=== PATIENT | female | born 1995 | race Caucasian/White ===

== ENCOUNTER → 2019-04-06 04:38 | Observation (INO) ==
[2019-04-06 00:01] LABS: Bilirubin,Urine Negative (Negative); Blood,Urine Large (Negative); Clarity,Urine Cloudy (Clear); Color,Urine Yellow (Yellow); Glucose,Urine (UA) Normal (Normal); Ketones,Urine Negative (Negative); Leukocyte Esterase,Urine Trace (Negative); Nitrite,Urine Negative (Negative); Protein,Urine Trace mg/dL (Neg-Trace); Specific Gravity,Urine 1.026 (1.010-1.025); Urobilinogen,Urine Normal (Normal)
[2019-04-06 00:04] LABS: Hyaline Casts,Urine None Seen per lpf (None-Few)
[2019-04-06 00:08] LABS: Amphetamine Screen,Urine Negative ng/mL (Cutoff=1000); Barbiturate Screen,Urine Negative ng/mL (Cutoff=200); Benzodiazepines Screen,Urine Negative ng/mL (Cutoff=200); Cannabinoid Screen,Urine Negative ng/mL (Cutoff = 50); Cocaine Screen,Urine Negative ng/mL (Cutoff= 300); Opiate Screen,Urine Negative ng/mL (Cutoff=300); Phencyclidine Screen,Urine Negative ng/mL (Cutoff=25)
[2019-04-06 00:20] LABS: Bacteria,Urine Few per hpf (None-Few); Mucus,Urine Few per lpf (Few); RBC,Urine 50-100 per hpf (0-3); Squamous Epithelial Cell,Urine Moderate per lpf (None-Few)
[2019-04-06 00:34] LABS: Basophils % 0.3 %; Eosinophils # 0.2 K/mcL (0.0-0.6); Eosinophils % 1.7 %; Hematocrit 33.6 % (35.3-44.9); Hemoglobin 11.9 g/dL (11.5-15.4); Immature Granulocytes % 0.4 % (0-4); Lymphocytes # 2.3 K/mcL (0.6-4.6); Lymphocytes % 20.7 %; Mean Corpuscular HGB Conc 35.4 g/dL (31.6-35.5); Mean Corpuscular Hemoglobin 32.7 pg (28.0-33.3); Mean Corpuscular Volume 92.3 fL (83.0-100.0); Mean Platelet Volume 9.7 fL (9.4-12.4); Monocytes # 0.8 K/mcL (0.0-1.3); Monocytes % 7.6 %; Neutrophils # 7.5 K/mcL (1.6-8.9); Platelet Count 283 K/mcL (140-400); Red Blood Count 3.64 M/mcL (3.82-4.97); Red Cell Distribution Width 11.8 % (11.5-14.5); Segmented Neutrophils % 69.3 %; White Blood Count 10.9 K/mcL (4.3-11.1)
[2019-04-06 00:53] LABS: Prothrombin Time 11.2 Seconds (9.4-12.1)
[2019-04-06 00:55] LABS: Activated Partial Thrombo Time 29.6 Seconds (26.0-36.0)
[~2019-04-06 04:38] MED LIST: Rho Immune Globulin 1,500 UNIT SYRINGE IM ONE
== END | disposition home or self-care (01) ==
LOC: 1NENULAB
PROVIDERS: ADMIT Advanced Practice Midwife; ATTEND Advanced Practice Midwife

== ENCOUNTER 2019-07-20 08:00 | Inpatient (IN) ==
[2019-07-21] MEDS ORDERED: Famotidine 20 MG/2 ML VIAL IVP PRN (16:06)
[2019-07-21] MEDS ORDERED: Naloxone 0.4 MG/ML INJ IVP PRN ×2 (16:06→18:08)
[2019-07-21] MEDS ORDERED: *HR* FentaNYL (PF) 100 MCG/2 ML VIAL IVP PRN (16:06)
[2019-07-21] MEDS ORDERED: Metoclopramide 10 MG/2 ML VIAL IVP PRN (16:06)
[2019-07-21] MEDS ORDERED: Ondansetron 4 MG/2 ML VIAL IVP PRN ×2 (16:06→18:08)
[2019-07-21] MEDS ORDERED: Oxytocin 20 units/ LR 1000 mL 20 UNIT/1,000 ML BAG IVC SCH (16:15)
[2019-07-21] MEDS ORDERED: Ringers Solution, Lactated 1,000 ML IVC SCH (16:15)
[2019-07-21 16:25] LABS: Basophils % 0.1 %; Eosinophils # 0.2 K/mcL (0.0-0.6); Eosinophils % 1.1 %; Hemoglobin 11.5 g/dL (11.5-15.4); Immature Granulocytes % 0.4 % (0-4); Lymphocytes % 14.3 %; Mean Corpuscular HGB Conc 31.9 g/dL (31.6-35.5); Mean Corpuscular Hemoglobin 30.1 pg (28.0-33.3); Mean Corpuscular Volume 94.2 fL (83.0-100.0); Mean Platelet Volume 10.2 fL (9.4-12.4); Neutrophils # 10.6 K/mcL (1.6-8.9); Platelet Count 309 K/mcL (140-400); Red Blood Count 3.82 M/mcL (3.82-4.97); Red Cell Distribution Width 12.4 % (11.5-14.5); Segmented Neutrophils % 77.1 %; White Blood Count 13.7 K/mcL (4.3-11.1)
[2019-07-21 17:44] LABS: Amphetamine Screen,Urine Negative ng/mL (Cutoff=1000); Barbiturate Screen,Urine Negative ng/mL (Cutoff=200); Benzodiazepines Screen,Urine Negative ng/mL (Cutoff=200); Cannabinoid Screen,Urine Negative ng/mL (Cutoff = 50); Cocaine Screen,Urine Negative ng/mL (Cutoff= 300); Opiate Screen,Urine Negative ng/mL (Cutoff=300); Phencyclidine Screen,Urine Negative ng/mL (Cutoff=25)
[2019-07-21] MEDS ORDERED: EPHEDrine 50 MG/ML VIAL IVP PRN (18:08)
[2019-07-21] MEDS ORDERED: *HR* FentaNYL (PF) 100 MCG/2 ML VIAL EP ONE (18:08)
[2019-07-21] MEDS ORDERED: Ropivacaine/PF 0.2% 20 ML VIAL EP ONE (18:08)
[2019-07-21] MEDS ORDERED: Epidural Premix (fent/bupiv) 110 ML EP SCH (18:15)
[2019-07-21] MEDS ORDERED: *HR* FentaNYL (PF) 100 MCG/2 ML VIAL ONE (18:41)
[2019-07-21] MEDS ORDERED: Ropivacaine/PF 0.2% 20 ML VIAL ONE (18:42)
[2019-07-21] MEDS ORDERED: 0.9 % Sodium Chloride 1,000 ML ONE (22:14)
[2019-07-21] MEDS ORDERED: Ringers Solution, Lactated 1,000 ML ONE ×2 (23:07→23:39)
[2019-07-21] MEDS ORDERED: *HR* Oxytocin 10 UNIT/ML VIAL IM ONE ×2 (23:07→23:39)
[2019-07-21] MEDS ORDERED: *HR* Morphine Sulfate/PF 10 MG/10 ML AMPUL ONE (23:18)
[2019-07-21] MEDS ORDERED: Acetaminophen IV 1,000 MG/100 ML INFUS..BTL IVPB ONE (23:21)
[2019-07-21] MEDS ORDERED: Ibuprofen 400 MG TABLET PO PRN (23:22)
[2019-07-21] MEDS ORDERED: Morphine Sulfate 2 MG/ML SYRINGE IVP PRN (23:22)
[2019-07-21] MEDS ORDERED: *HR* OxyCODONE/APAP 5/325 TABLET PO PRN (23:22)
[2019-07-22] MEDS ORDERED: Ketorolac 30 MG/ML VIAL ONE (00:04)
[2019-07-22] MEDS ORDERED: Acetaminophen 325 MG TABLET PO PRN (02:32)
[2019-07-22] MEDS ORDERED: Rho Immune Globulin 1,500 UNIT SYRINGE IM ONE (02:32)
[2019-07-22] MEDS ORDERED: Ondansetron 4 MG/2 ML VIAL IVP PRN (02:32)
[2019-07-22] MEDS ORDERED: Simethicone 80 MG TAB.CHEW PO PRN (02:32)
[2019-07-22] MEDS ORDERED: Oxytocin 20 units/ LR 1000 mL 20 UNIT/1,000 ML BAG IVC SCH (02:32)
[2019-07-22 05:05] LABS: Basophils % 0.2 %; Eosinophils % 0.1 %; Hematocrit 30.1 % (35.3-44.9); Immature Granulocytes % 0.6 % (0-4); Lymphocytes # 1.9 K/mcL (0.6-4.6); Mean Corpuscular HGB Conc 32.9 g/dL (31.6-35.5); Mean Corpuscular Hemoglobin 30.4 pg (28.0-33.3); Mean Corpuscular Volume 92.3 fL (83.0-100.0); Mean Platelet Volume 10.2 fL (9.4-12.4); Monocytes # 1.4 K/mcL (0.0-1.3); Monocytes % 7.5 %; Neutrophils # 15.6 K/mcL (1.6-8.9); Platelet Count 241 K/mcL (140-400); Red Blood Count 3.26 M/mcL (3.82-4.97); Red Cell Distribution Width 12.3 % (11.5-14.5); Segmented Neutrophils % 81.6 %; White Blood Count 19.1 K/mcL (4.3-11.1)
[2019-07-22 05:07] LABS: Hemoglobin 9.9 g/dL (11.5-15.4)
[2019-07-22] MEDS: Ibuprofen 600 MG TABLET PO SCH ×3 (05:24→21:26)
[2019-07-22] MEDS ORDERED: Ringers Solution, Lactated 1,000 ML IVC ONE (07:53)
[2019-07-22] MEDS: metroNIDAZOLE 500 MG TABLET PO SCH ×3 (08:06→21:26)
[2019-07-22] MEDS: cephALEXin 500 MG CAPSULE PO SCH ×3 (08:06→21:25)
[2019-07-22] MEDS: Prenatal Vit/FA 1 EACH TABLET PO SCH (08:06)
[2019-07-22] MEDS: *HR* OxyCODONE Immed Rel 5 MG TABLET PO PRN ×2 (15:00→21:25)
[2019-07-23] MEDS: Ibuprofen 600 MG TABLET PO SCH ×2 (02:58→09:27)
[2019-07-23] MEDS: *HR* OxyCODONE Immed Rel 5 MG TABLET PO PRN (02:59)
[2019-07-23 07:56] VITALS: BP 114/73
[2019-07-23] MEDS: Prenatal Vit/FA 1 EACH TABLET PO SCH (09:27)
[2019-07-23] MEDS: metroNIDAZOLE 500 MG TABLET PO SCH (09:27)
[2019-07-23] MEDS: cephALEXin 500 MG CAPSULE PO SCH (09:28)
== END 2019-07-23 12:05 | disposition home or self-care (01) | DRG 540 ==
LOC: 1NENULAB 07-21 15:37 → 1NENUOBS 07-22 02:29
PROVIDERS: ADMIT Obstetrics & Gynecology; ATTEND Obstetrics & Gynecology